=== PATIENT | male | born 1945 | race Caucasian/White ===

== ENCOUNTER → 2020-03-05 | Outpatient (CLI) | payer OTHER ==
[~2020-03-05] MED LIST: DONEPEZIL HCL5 MG PO; FLOMAX 0.4 MG0.4 MG PO; IRON325 M1 PO; LEVETIRACETAM1000 MG PO; LEVOTHYROXINE150 MC1 PO; OMEPRAZOLE40 MG PO; ST. JOSEPH ASPI81 M1 PO
== END ==
LOC: ECHO 03-03 12:00
DX: R01.1 Cardiac murmur, unspecified (principal); I07.1 Rheumatic tricuspid insufficiency; R93.1 Abnormal findings on diagnostic imaging of heart and coronary circulation; Z95.2 Presence of prosthetic heart valve
CPT/HCPCS: 93308

== ENCOUNTER → 2020-03-26 | Outpatient (CLI) | payer OTHER | LOC: HEART 5 03-23 15:00 | DX: I42.9 Cardiomyopathy, unspecified (principal); R42 Dizziness and giddiness; R55 Syncope and collapse ==

== ENCOUNTER → 2020-06-04 | Day surgery (SDC) | payer OTHER | END | disposition home or self-care (01) | LOC: OR 07:42 | DX: D50.0 Iron deficiency anemia secondary to blood loss (chronic) (principal); D12.3 Benign neoplasm of transverse colon; K31.7 Polyp of stomach and duodenum; K63.89 Other specified diseases of intestine; K57.30 Diverticulosis of large intestine without perforation or abscess without bleeding; K64.0 First degree hemorrhoids; J44.9 Chronic obstructive pulmonary disease, unspecified; K21.9 Gastro-esophageal reflux disease without esophagitis; N40.0 Benign prostatic hyperplasia without lower urinary tract symptoms; Z80.0 Family history of malignant neoplasm of digestive organs; Z88.0 Allergy status to penicillin; Z85.038 Personal history of other malignant neoplasm of large intestine | CPT/HCPCS: J2704; J3010; J7040 ==

== ENCOUNTER → 2021-08-12 | Outpatient (CLI) | payer OTHER | LOC: CT 12:42 | DX: R63.4 Abnormal weight loss (principal); I51.7 Cardiomegaly; I71.4 Abdominal aortic aneurysm, without rupture | CPT/HCPCS: 71260; Q9967 ==